=== PATIENT | male | born 1990 | race Caucasian/White ===

== ENCOUNTER 2023-11-13 11:51 | Emergency (ER) | payer SELFPAY ==
[2023-11-13] VITALS (8 sets, daily range): BP systolic 118–135; BP diastolic 67–92
[~2023-11-13] VITALS: Ht 175.3 cm; Wt 172.4 kg
[2023-11-13] MEDS ORDERED: ASPIRIN 81 MG/TAB PO ONE (12:00)
[2023-11-13 12:37] LABS: BASO% 0.2 % (0-3); HEMATOCRIT 47.9 % (39.0-50.0); HEMOGLOBIN 15.4 g/dl (14.0-18.0); IMMATURE GRANULOCYTES 0.2 % (0.0-5.0); MEAN CELL VOLUME 84.8 fL CALC (80.0-100.0); MEAN CORPUSCULAR HGB 27.3 pG CALC (26.0-32.0); MEAN CORPUSCULAR HGB CONC 32.2 g/dL CAL (32.0-36.0); MONO% 5.1 % (2-13); NEUT# 9.55 thou/uL (1.82-7.42); NEUT% 74.5 % (42-76); RED BLOOD COUNT 5.65 mill/uL (4.70-6.10); RED CELL DISTRI WIDTH 14.4 % (11.5-15.5)
[2023-11-13 12:42] LABS: ALBUMIN 4.3 g/dL (3.2-5.0); ALKALINE PHOSPHATASE 56 u/l (38-126); ANION GAP 11 (6-22 (CALC)); BILIRUBIN, TOTAL 0.5 mg/dL (0.2-1.3); BUN 23 mg/dL (9-20); BUN/CREATININE RATIO 17 (12-20 (CALC)); CARBON DIOXIDE 26 mmol/l (22-30); CHLORIDE 107 mmol/l (95-108); CREATININE 1.3 mg/dL (0.7-1.3); ESTIMATED GFR 74 ML/MIN (>=90 (CALC)); SGOT/AST 33 u/l (17-59); SODIUM 139 mmol/l (137-146); TOTAL PROTEIN 7.8 g/dL (6.3-8.2)
== END 2023-11-13 15:36 | disposition home or self-care (01) | DRG 313 ==
LOC: ED 11:51
PROVIDERS: Family Medicine
DX: R07.9 Chest pain, unspecified (principal); I10 Essential (primary) hypertension